=== PATIENT | male | born 1980 | race Native Hawaiian/Other Pacific Islander ===

== ENCOUNTER 2018-12-02 17:26 | Emergency (ER) | payer BC ==
--- NOTE | 2018-12-02 19:01 | ED PDOC ---
HPI: Dental Pain/Injury Time Seen by Provider: 12/02/18 18:00 Chief Complaint (Nursing): Dental Pain Chief Complaint (Provider): FACIAL SWELLING History Per: Patient (38 Y/O MALE WITH RECENT WISDOM TOOTH EXTRACTION #16 TODAY AT 3PM HERE WITH SUDDEN ONSET SWELLING 30 MIN PRIOR TO ED ARRIVAL EN ROUTE HOME FROM [facility] [facility]. NOTES INITIALLY LARGE AMOUNT OF CLOTS/BLOOD WHEN SPITTING OUT. WAS ADVISED TO COME TO ED CLOSEST TO THEM. NO FEVERS/CHILLS. NO H/O BLEEDING DISORDERS OR ADDITIONAL MEDICATIONS.) Past Medical History Reviewed: Historical Data, Nursing Documentation, Vital Signs Vital Signs: Last Vital Signs Temp 98.2 F 12/02/18 17:39 Pulse 86 12/02/18 17:39 Resp 16 12/02/18 17:39 BP 146/87 12/02/18 17:39 Pulse Ox 100 12/02/18 17:39 - Family History Family History: States: No Known Family Hx - Home Medications Home Medications: Ambulatory Orders Medication Instructions Recorded Amoxicillin/Clavulanate [Augmentin 1 tab PO BID #14 tab 12/02/18 875 MG-125 MG] - Allergies Allergies/Adverse Reactions: Allergies Allergy/AdvReac Type Severity Reaction Status Date / Time No Known Allergies Allergy Verified 12/02/18 17:49 Review of Systems ROS Statement: Except As Marked, All Systems Reviewed And Found Negative Physical Exam - Reviewed Nursing Documentation Reviewed: Yes Vital Signs Reviewed: Yes - Physical Exam Appears: Positive for: Well, Non-toxic, No Acute Distress Head Exam: Positive for: ATRAUMATIC, NORMAL INSPECTION, NORMOCEPHALIC Skin: Positive for: Normal Color, Warm, DRY Eye Exam: Positive for: EOMI, Normal appearance, PERRL ENT: Negative for: Normal ENT Inspection (ABLE TO OPEN MOUTH WIDE. NOTED TO HAVE OOZING IN LOCATION POSTERIOR MAXILLARY. LEFT FACIAL SWELLING NOTED.) Neck: Positive for: Normal, Painless ROM Cardiovascular/Chest: Positive for: Regular Rate, Rhythm Respiratory: Positive for: CNT, Normal Breath Sounds Gastrointestinal/Abdominal: Positive for: Normal Exam, Soft Back: Positive for: Normal Inspection Extremity: Positive for: Normal ROM Neurologic/Psych: Positive for: Alert, Oriented - Laboratory Results Result Diagrams: 12/02/18 19:30 12/02/18 19:30 - ECG O2 Sat by Pulse Oximetry: 100 - Progress ED Course And Treament: D/W ORAL SURGEON [phone] PATIENT TO APPLY ICE 24 HOURS AND THEN WARM COMPRESSES. ADVISED F/U TOMORROW AM. Upon re-examination at 19:00 patient noted to have increased swelling of left lateral aspect of face and temporal region. Seen and d/w Dr. Whatley. TXA soaked guaze applied to inside of mouth by oral wounds. CT orbital/facial reviewed: 1.5 x 3.2 cm heterogenous.cm soft tissue collection located anterior to the left masseter muscle. no abscess formation. d/w Dr. Breswter. As bleeding controlled in ED and no signs of airway com promise., advised to f/u in office tomorrow. NS 500ml iv bolus Medical Decision Making Medical Decision Makin:05 CT Maxillofacial FINDINGS: BONES: No acute fracture or aggressive appearing osseous lesion. The mandible is i ntact. Status post prior anterior surgical fusion at C5-C6. 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 SOFT TISSUES: Along the lateral aspect of the posterior left maxilla there is identified an approximately 1.5 x 3.2 cm heterogeneous soft tissue collection thought co mpatible with recent post dental extraction hematoma/soft tissue edema. This finding is located anterior to the left masseter muscle. No abscess formation is detected. SINUSES: The sinuses are clear. ORBITS: The orbits are normal. No retrobulbar hematoma or mass. IMPRESSION: 1. Status post recent dental extraction of a wisdom tooth. 2. Findings in the lateral left maxillary soft tissues compatible with post dental extraction edema/hematoma. 3. Status post prior anterior surgical fusion at C5-6. Disposition - Clinical Impression Clinical Impression: Hematoma - Patient ED Disposition Is Patient to be Admitted: No - Disposition Disposition: Routine/Home Disposition Time: 22:23 Condition: FAIR Additional Instructions: PLACE ICE FOR 24 HOURS AND THEN WARM COMPRESSES THEREAFTER PLEASE CALL DENTAL OFFICE TOMORROW TO ARRANGE FOR EVALUATION. Prescriptions: Amoxicillin/Clavulanate [Augmentin 875 MG-125 MG] 1 tab PO BID #14 tab Instructions: Contusion (DC), Dental Pain (DC)
[2018-12-02] MEDS ORDERED: Piperacillin/Tazobact 3.375 GM in Sodium Chloride 0.9% 100 ML IVPB STA (19:07)
[2018-12-02] MEDS ORDERED: Tranexamic Acid 1,000 MG in Sodium Chloride 0.9% 100 ML IVPB STA (19:13)
[2018-12-02] MEDS ORDERED: Piperacillin/Tazobact 3.375 gm Inj IVPB ONE (19:14)
[2018-12-02 19:59] LABS: BASO % 0.4 % (0.0-2.0); EOS # 0.1 K/uL (0.0-0.7); EOS % 0.9 % (0.0-4.0); HEMOGLOBIN 14.9 g/dL (12.0-18.0); LYMPH # 2.2 K/uL (1.0-4.3); MEAN CORPUSCULAR HEMOGLOBIN 29.4 pg (27.0-31.0); MEAN CORPUSCULAR HGB CONC 33.3 g/dL (33.0-37.0); MEAN PLATELET VOLUME 7.9 fl (7.2-11.7); MONO # 0.5 K/uL (0.0-0.8); MONO % 4.9 % (0.0-10.0); NEUT # 8.1 K/uL (1.8-7.0); NEUT % 73.8 % (50.0-75.0); RBC 5.06 Mil/uL (4.40-5.90); RED CELL DISTRIBUTION WIDTH 13.8 % (11.5-14.5); WHITE BLOOD COUNT 10.9 K/uL (4.8-10.8)
[2018-12-02 20:10] LABS: BLOOD UREA NITROGEN 16 mg/dl (9-20); CALCIUM 9.5 mg/dL (8.4-10.2); GFR NON-AFRICAN AMERICAN > 60
[2018-12-02] MEDS ORDERED: Sodium Chloride 0.9% 50 ML IV ONE (20:34)
[2018-12-02] MEDS ORDERED: Iohexol 300 100 ML IJ ONE (20:34)
[2018-12-02 21:36] LABS: PROTHROMBIN TIME 11.7 Seconds (9.8-13.1)
[2018-12-02 21:39] LABS: PARTIAL THROMBOPLASTIN TIME 32.5 Seconds (25.6-37.1)
[2018-12-02] MEDS ORDERED: Sodium Chloride 0.9% 1,000 ML IV STA (21:51)
[2018-12-02 22:31] VITALS: BP 120/84; PULSE 71; RESP 18; TEMP 97.6; O2SAT 98
--- NOTE | 2018-12-03 10:09 | CT ---
Date of service: 12/02/2018 PROCEDURE: FACIAL CT WITH CONTRAST HISTORY: EVALUATE FOR HEMATOMA/FACIAL SWELLING; recent wisdom tooth extraction clinically known. COMPARISON: None available. TECHNIQUE: Helical CT of the facial bones is been performed from the frontal bones to the upper larynx, following intravenous iodinated contrast administration. Contrast Dose: Omnipaque 300, 95 cc Radiation dose:Total exam DLP = 683.04 mGy-cm. This CT exam was performed using one or more of the following dose reduction techniques: Automated exposure control, adjustment of the mA and/or kV according to patient size, and/or use of iterative reconstruction technique. FINDINGS: Left rotary drill operator helper space as well as superficial subcutaneous fat at the left cheek, phlegmon is identified developing without significant peripheral enhancement or definitive fluid collection associated. This appears to originate at the level of the posterior left maxilla with a segment of the posterior left alveolar recess missing as well as a small portion of the posterior wall the left maxillary sinus inferiorly. Findings suggest postoperative changes following recent dental procedure including extraction of a molar with related reaction/hematoma. Infection or neoplasm of local soft tissues with difficult to completely exclude here. Further clinical correlation is recommended. Soft tissues superficial to the left temporal region appears unremarkable. No suspicious contralateral right rotary drill operator helper space findings. There minimal left infraorbital reactive change in the upper left cheek soft tissue but no emphysematous changes or abscess here. Left orbit is otherwise unremarkable. No suspicious right overall findings. Oral cavity is partially obscured by artifact from dental hardware but appears grossly nonfocal as well as pharynx and visualized larynx. No fracture appreciable. Skull base and cervical spine appear remarkable for anterior spinal fusion as well as intervertebral fusion at C5-6. Numerous shotty posterior triangle as well as jugular digastric lymph nodes are identified without prominent enlargement. Shotty bilateral submental and submandibular triangle lymph nodes are also seen. Incidental capture through the inferior brain is nonfocal as imaged. IMPRESSION: 1. Left rotary drill operator helper space reactive changes are appreciated in a pattern that suggests postoperative change rather than abscess related to posterior left maxilla though the inferior margin of the posterior maxillary sinus are eroded. Please see discussion above. Infectious or neoplastic etiology not favored but difficult to completely exclude. 2. Shotty neck lymph nodes as discussed above. Concordant preliminary report from [facility], 12/02/2018, 10:03 p.m..
== END 2018-12-02 22:42 | disposition home or self-care (01) ==
LOC: H.ER 17:26
DX: S00.83XA Contusion of other part of head, initial encounter (principal); X58.XXXA Exposure to other specified factors, initial encounter
CPT/HCPCS: 70481; 80048; 85025; 85610; 85730; 86850; 86900; 96361; 96365; 96375; 99283; J2543; J7030; Q9967